=== PATIENT | male | born 1970 | race African-American/Black ===

== ENCOUNTER 2016-12-03 10:13 | Emergency (ER) | payer MEDICARE, OTHER ==
[~2016-12-03] VITALS: Ht 172.7 cm; Wt 81.6 kg
[2016-12-03 11:01] VITALS: BP 140/98
[2016-12-03] MEDS ORDERED: IPRATRPIUM/ALBUTEROL 0.5/2.5MG 3 ML NEBU. NEB ONE (12:15)
[2016-12-03 12:43] LABS: OBC FLU VALID
--- NOTE | 2016-12-03 13:00 | RAD ---
Indication: Cough and fever. Time of exam 12:37 PM Correlation is made with prior study from 10/24/2013. FINDINGS: The heart size is normal. The lungs are clear. No pleural effusion or pneumothorax is identified. The pulmonary vascularity is normal. IMPRESSION: No acute abnormality detected.
[2016-12-03 13:13] LABS: BILIRUBIN,URINE NEGATIVE (NEG); GLUCOSE,URINE NEGATIVE (NEG); NITRITE,URINE NEGATIVE (NEG); PH,URINE 6.5; PROTEIN,URINE NEGATIVE (NEG-TRACE); UROBILINOGEN,URINE 0.2 mg/dL (0.2 mg/dL)
[2016-12-03 13:22] LABS: RBC,URINE OCC /HPF (0-2); WBC,URINE 0 /HPF (0-4)
[2016-12-03 13:23] LABS: BACTERIA,URINE 0 /HPF (0-FEW)
[2016-12-03 14:01] LABS: NEGATIVE OBC STREP NEG; POSITIVE OBC STREP POS
[2016-12-03] MEDS ORDERED: GUAI600T38 PO (14:09)
[2016-12-03] MEDS ORDERED: BENZ100C PO (14:09)
[2016-12-03] MEDS ORDERED: PROAIR HFA8.5 GM INH (14:09)
--- NOTE | 2016-12-03 14:09 | PHYS DOC ---
Past Medical History Past Medical History: Anxiety, Asthma, Bipolar, Hypertension, Schizophrenia Past Surgical History: Other Additional Past Surgical Histo: RIGHT HAND 2 FINGERS. Alcohol Use: None Drug Use: None Adult General Chief Complaint Chief Complaint: COUGH HPI HPI Patient is a 46 year old male who presents with productive cough and congestion for three weeks. Reports fever for two days one week ago. No interventions prior to arrival. Denies shortness of breath, chest pain, palpitations, edema Review of Systems Review of Systems Constitutional: Fever one week ago Eyes: Denies change in visual acuity, redness, or eye pain HENT: Denies or sore throat. Congestion for three weeks Respiratory: Denies shortness of breath. Cough 3 weeks. Cardiovascular: No additional information not addressed in HPI GI: Denies abdominal pain, nausea, vomiting, bloody stools or diarrhea : Denies dysuria or hematuria Musculoskeletal: Denies back pain or joint pain Integument: Denies rash or skin lesions Neurologic: Denies headache, focal weakness or sensory changes Endocrine: Denies polyuria or polydipsia [] Current Medications Current Medications Current Medications Medications (Trade) Dose Ordered Sig/[place] Start Time Stop Time Status Last Admin Dose Admin Albuterol/ Ipratropium (Duoneb) 3 ml 1X ONCE 12/03/16 12:15 12/03/16 12:16 DC 12/03/16 13:16 3 ML Allergies Allergies Allergies Coded Allergies Type Severity Reaction Last Updated Verified Sulfa (Sulfonamide Antibiotics) Allergy Intermediate Rash 12/03/16 Yes risperidone Allergy Intermediate 10/24/13 Yes aripiprazole Allergy Unknown Unknown 08/23/14 No Haloperidol Lactate Adverse Reaction Intermediate TARDIVE DYSKINESIA 12/03/16 Yes haloperidol Adverse Reaction Intermediate TARDIVE DYSKINESIA 12/03/16 Yes Physical Exam Physical Exam Constitutional: Well developed, well nourished, no acute distress, non-toxic appearance. HENT: Normocephalic, atraumatic, bilateral external ears normal, oropharynx moist, no oral exudates, nose normal. Eyes: PERRLA, EOMI, conjunctiva normal, no discharge. Neck: Normal range of motion, no tenderness, supple, no stridor. Cardiovascular:Heart rate regular rhythm, no murmur Lungs & Thorax: Mild posterior lower lobe expiratory wheezes. Abdomen: Bowel sounds normal, soft, no tenderness, no masses, no pulsatile masses. Skin: Warm, dry, no erythema, no rash. [] Back: No tenderness, no CVA tenderness. [] Extremities: No tenderness, no cyanosis, no clubbing, ROM intact, no edema. Neurologic: Alert and oriented X 3, normal motor function, normal sensory function, no focal deficits noted. Psychologic: Affect normal, judgement normal, mood normal. [] Current Patient Data Vital Signs Vital Signs Date Time Temp Pulse Resp B/P Pulse Ox O2 Delivery O2 Flow Rate FiO2 12/03/16 13:19 Room Air 12/03/16 11:01 98.0 69 24 99 98.0 Lab Values Laboratory Tests Test 12/03/16 11:59 12/03/16 12:15 12/03/16 13:05 Influenza Type A Antigen Negative (NEGATIVE) Influenza Type B Antigen Negative (NEGATIVE) Group A Streptococcus Rapid Negative (NEGATIVE) Urine Collection Type Unknown Urine Color Yellow Urine Clarity Clear Urine pH 6.5 Urine Specific [place] 1.010 Urine Protein Negativemg/dL (NEG-TRACE) Urine Glucose (UA) Negativemg/dL (NEG) Urine Ketones (Stick) Negativemg/dL (NEG) Urine Blood Negative (NEG) Urine Nitrite Negative (NEG) Urine Bilirubin Negative (NEG) Urine Urobilinogen Dipstick 0.2mg/dL (0.2 mg/dL) Urine Leukocyte Esterase Negative (NEG) Urine RBC Occ/HPF (0-2) Urine WBC 0/HPF (0-4) Urine Bacteria 0/HPF (0-FEW) EKG EKG [] Radiology/Procedures Radiology/Procedures [] Impressions: 1. Bronchitis Course & Med Decision Making Course & Med Decision Making Pertinent Labs and Imaging studies reviewed. (See chart for details) Wheezes cleared with neb. No respiratory distress Dragon Disclaimer Dragon Disclaimer This electronic medical record was generated, in whole or in part, using a voice recognition dictation system. Departure Departure Impression: Primary Impression: Bronchitis Disposition: 01 HOME, SELF-CARE Condition: STABLE Referrals: NO PCP (PCP) Patient Instructions: Bronchitis, [id number] Additional Instructions: Take medication as prescribed. Follow up with primary doctor in 1-2 days. Return if problems or concerns. Scripts Guaifenesin (Mucinex)600 Mg Tablet.er1 Tab PO BID #14 TAB Prov:KEENAN WHITE APRN 1/26/17 Benzonatate (Tessalon Perle)100 Mg Capsule1 Cap PO TID #21 CAP Prov:KEENAN WHITE APRN 12/03/16 Albuterol Sulfate (Proair Hfa Inhaler)8.5 Gm Hfa.aer.ad1 Puff INH PRN Q6HRS PRN WHEEZING #1 INHALER Ref 0 Prov:KEENAN WHITE APRN 12/03/16 KEENAN WHITE APRN Dec 03, 2016 14:09
== END 2016-12-03 14:15 | disposition home or self-care (01) ==
LOC: ER 10:13
DX: J40 Bronchitis, not specified as acute or chronic (principal); F41.9 Anxiety disorder, unspecified; J45.909 Unspecified asthma, uncomplicated; F31.9 Bipolar disorder, unspecified; I10 Essential (primary) hypertension; F20.9 Schizophrenia, unspecified; Z88.2 Allergy status to sulfonamides; Z88.8 Allergy status to other drugs, medicaments and biological substances
CPT/HCPCS: 71020; 81001; 87070; 87804; 87880; 94250; 94640; 99285; J7620

== ENCOUNTER 2017-05-29 14:05 | Emergency (ER) | payer MEDICARE, OTHER ==
[~2017-05-29] VITALS: Ht 172.7 cm; Wt 81.6 kg
[~2017-05-29 14:05] MED LIST: BENZ100C PO; GUAI600T47 PO; PROAIR HFA8.5 GM INH
[2017-05-29 14:10] VITALS: BP 145/97
--- NOTE | 2017-05-29 14:24 | PHYS DOC ---
Past Medical History Past Medical History: Anxiety, Asthma, Bipolar, Hypertension, Schizophrenia Past Surgical History: Other Additional Past Surgical Histo: RIGHT HAND 2 FINGERS. Alcohol Use: None Drug Use: None Adult General Chief Complaint Chief Complaint: HAND PROBLEM HPI HPI Patient is a 47 year old male presents to the emergency department with complaints of right hand pain. He states one week ago he struck a wall yesterday he struck a door. He states that he has anger management issues. He is here now seeking further evaluation Review of Systems Review of Systems Constitutional: Denies fever or chills [] Eyes: Denies change in visual acuity, redness, or eye pain [] HENT: Denies nasal congestion or sore throat [] Respiratory: Denies cough or shortness of breath [] Cardiovascular: No additional information not addressed in HPI [] GI: Denies abdominal pain, nausea, vomiting, bloody stools or diarrhea [] : Denies dysuria or hematuria [] Musculoskeletal: Right hand pain Integument: Denies rash or skin lesions [] Neurologic: Denies headache, focal weakness or sensory changes [] Endocrine: Denies polyuria or polydipsia [] Allergies Allergies Allergies Coded Allergies Type Severity Reaction Last Updated Verified Sulfa (Sulfonamide Antibiotics) Allergy Intermediate Rash 12/03/16 Yes risperidone Allergy Intermediate 10/24/13 Yes aripiprazole Allergy Unknown Unknown 08/23/14 No Haloperidol Lactate Adverse Reaction Intermediate TARDIVE DYSKINESIA 12/03/16 Yes haloperidol Adverse Reaction Intermediate TARDIVE DYSKINESIA 12/03/16 Yes Physical Exam Physical Exam Skin: Warm, dry, no erythema, no rash. [] Extremities: Right hand, obvious deformity over the fifth metacarpal with mild tenderness to palpate. There is no ecchymosis. No swelling.. Patient has a chronic deformity of the right second and long finger from his previous fracture. Neurovascular intact distally. Right wrist exam right elbow exam unremarkable. Neurologic: Alert and oriented X 3, normal motor function, normal sensory function, no focal deficits noted. [] Current Patient Data Vital Signs Vital Signs Date Time Temp Pulse Resp B/P (MAP) Pulse Ox O2 Delivery O2 Flow Rate FiO2 05/29/17 14:10 97.5 98 16 96 Room Air 97.5 EKG EKG [] Radiology/Procedures Radiology/Procedures [][facility] [address] [place] [address] IMAGING REPORT Signed PATIENT: NEGRO GOMEZ ACCOUNT: [id number] : 1970 LOCATION: ER AGE: 47 SEX: M EXAM STATUS: PRE ER ORD. PHYSICIAN: NICHOLAS MOISE APRN REASON: pain after hitting a wall and a door PROCEDURE: HAND RIGHT 3V Indication pain associated with an injury punching a wall one week ago. The patient reports a chronic deformity associated with the index and long finger. AP oblique and lateral views of the right hand were obtained. No prior imaging of the hand is available. There is a mildly angulated fracture involving the distal shaft of the fifth metacarpal. There is some callus formation seen associated with the fracture compatible with some healing. Chronic deformity is seen associated with the proximal phalanges of the index and long fingers. Some metallic debris is noted associated with the long finger. It is uncertain whether this is in the soft tissues of the bone IMPRESSION: Healing fracture associated with the fifth metacarpal DICTATED and SIGNED BY: MOISE MUNSON MD DATE: 05/29/17 [id number] CC: NO PCP; NICHOLAS MOISE APRN ~ Course & Med Decision Making Course & Med Decision Making Ulnar gutter splint placed per nursing staff. Tolerated well. Neurovascular intact distally. Pertinent Labs and Imaging studies reviewed. (See chart for details) [] Dragon Disclaimer Dragon Disclaimer This electronic medical record was generated, in whole or in part, using a voice recognition dictation system. Departure Departure Impression: Primary Impression: Fracture of fifth metacarpal bone of right hand Disposition: 01 HOME, SELF-CARE Condition: STABLE Referrals: NO PCP (PCP) PHILLY HUDSON II, MD Patient Instructions: Hand Fracture, Fifth Metacarpal Additional Instructions: Bupropion [id number] as labeled and is indicated for symptom management. The x-ray reveals chronic changes without apparent acute injury. Please follow- up with an orthopedic physician as directed. NICHOLAS MOISE APRN May 29, 2017 14:24
--- NOTE | 2017-05-29 15:01 | RAD ---
Indication pain associated with an injury punching a wall one week ago. The patient reports a chronic deformity associated with the index and long finger. AP oblique and lateral views of the right hand were obtained. No prior imaging of the hand is available. There is a mildly angulated fracture involving the distal shaft of the fifth metacarpal. There is some callus formation seen associated with the fracture compatible with some healing. Chronic deformity is seen associated with the proximal phalanges of the index and long fingers. Some metallic debris is noted associated with the long finger. It is uncertain whether this is in the soft tissues of the bone IMPRESSION: Healing fracture associated with the fifth metacarpal
== END 2017-05-29 15:22 | disposition home or self-care (01) ==
LOC: ER 14:05
DX: S62.326A Displaced fracture of shaft of fifth metacarpal bone, right hand, initial encounter for closed fracture (principal); F20.9 Schizophrenia, unspecified; F41.9 Anxiety disorder, unspecified; I10 Essential (primary) hypertension; J45.909 Unspecified asthma, uncomplicated; F31.9 Bipolar disorder, unspecified; Z88.2 Allergy status to sulfonamides; Z88.8 Allergy status to other drugs, medicaments and biological substances; W22.8XXA Striking against or struck by other objects, initial encounter; Y93.89 Activity, other specified; Y92.89 Other specified places as the place of occurrence of the external cause; Y99.8 Other external cause status
CPT/HCPCS: 29125; 73130; 99284-25